=== PATIENT | female | born 1995 | race Caucasian/White ===

== ENCOUNTER 2017-09-05 05:23 | Emergency (ER) | payer BC ==
[~2017-09-05] VITALS: Ht 172.7 cm; Wt 97.1 kg
[2017-09-05] MEDS ORDERED: SODIUM CHLORIDE 0.9% 1,000 ML IV ONE (05:43)
[2017-09-05] MEDS ORDERED: IBUPROFEN 200 MG TABLET ONE (05:50)
[2017-09-05] MEDS ORDERED: ACETAMINOPHEN 325 MG TABLET ONE (05:52)
[2017-09-05 06:00] LABS: HEMOGLOBIN 14.6 g/dL (11.7-16.4); WHITE BLOOD COUNT 5.6 x10^3/uL (3.4-10)
[2017-09-05] MEDS ORDERED: SODIUM CHLORIDE 0.9% 1,000ML IVBOLUS ONE (06:00)
[2017-09-05] MEDS ORDERED: ACETAMINOPHEN 325 MG TABLET PO ONE (06:00)
[2017-09-05] MEDS ORDERED: SODIUM CHLORIDE FLUSH 10ML SYR IVF ONE (06:00)
[2017-09-05 06:17] LABS: ASPARTATE AMINO TRANSFERASE 22 U/L (15-37); BLOOD UREA NITROGEN 8 mg/dL (7-18)
[2017-09-05 06:37] LABS: RAPID INFLUENZA A POSITIVE (Negative); RAPID INFLUENZA B Negative (Negative)
[2017-09-05 08:31] VITALS: BP 111/67
== END 2017-09-05 08:34 | disposition home or self-care (01) ==
LOC: ED 08:28
DX: J09.X2 Influenza due to identified novel influenza A virus with other respiratory manifestations (principal); J02.9 Acute pharyngitis, unspecified; J00 Acute nasopharyngitis [common cold]
CPT/HCPCS: 36415; 71010; 80053; 85025; 87400; 93005; 96360; 99285; J7030; J7512

== ENCOUNTER 2020-04-16 14:40 | Emergency (ER) | payer BC, OTHER ==
[~2020-04-16] VITALS: Ht 172.7 cm; Wt 94.5 kg
--- NOTE | 2020-04-16 15:30 | NUR ---
PT HAS CO INTERMITENT NUMBNESS IN ARMS AND HANDS.PT STATES HER FACE WILL BECOME NUMB AND DROOP AT TIMES. STARTED 4 DAYS AGO. OVERALL FEELING OF FOGGINESS AND DIZZINESS. PT SPEECH CLEAR, NO FACIAL NUMBNESS OR DROOP AT THIS TIME. NEURO INTACT. CO MARTINEZ IN NECK AND BACK OF HEAD. VSS.
[2020-04-16 16:16] VITALS: BP 121/77
--- NOTE | 2020-04-16 16:17 | NUR ---
AMBULATED TO BATHROOM FOR UA. STEADY GAIT
[2020-04-16 16:22] LABS: BASOPHILS # (AUTO) 0.05 x10^3/uL (0-0.1); BASOPHILS % (AUTO) 1 % (0-1); EOSINOPHILS # (AUTO) 0.43 x10^3/uL (0-0.4); EOSINOPHILS % (AUTO) 5 % (1-7); LYMPHOCYTES # (AUTO) 1.74 x10^3/uL (1-3.4); LYMPHOCYTES % (AUTO) 22 % (22-44); MD NO; MEAN CORPUSCULAR HEMOGLOBIN 29.2 pg (27.0-34.8); MEAN CORPUSCULAR HGB CONC 32.7 g/dL (32.4-35.8); MEAN CORPUSCULAR VOLUME 89.5 fL (80-100); MEAN PLATELET VOLUME 10.4 fL (7.4-10.4); MONOCYTES # (AUTO) 0.54 x10^3/uL (0.2-0.8); MONOCYTES % (AUTO) 7 % (2-9); NEUTROPHILS # (AUTO) 5.21 x10^3/uL (1.8-6.8); NEUTROPHILS % (AUTO) 66 % (42-75); PLATELET COUNT 217 x10^3/uL (130-400); RED BLOOD COUNT 5.12 x10^6/uL (3.82-5.3); RED CELL DISTRIBUTION WIDTH 13.6 % (9.6-15.2)
[2020-04-16 16:33] LABS: ALANINE AMINOTRANSFERASE 30 U/L (12-78); ALBUMIN 4.1 g/dL (3.4-5.0); ANION GAP 5 mmol/L (5-15); CALCIUM 8.9 mg/dL (8.5-10.1); CHLORIDE 111 mmol/L (98-107); CREATININE 0.69 mg/dL (0.55-1.02)
[2020-04-16 16:37] LABS: ALKALINE PHOSPHATASE 69 U/L (45-117); BILIRUBIN,TOTAL 0.4 mg/dL (0.2-1.0); TOTAL PROTEIN 7.6 g/dL (6.4-8.2)
[2020-04-16 16:44] LABS: MICROSCOPIC NOT IND
--- NOTE | 2020-04-16 17:16 | NUR ---
PT BACK FROM CT
--- NOTE | 2020-04-16 18:19 | NUR ---
Patient/Caregiver given discharge instructions and they have confirmed that they understand the instructions. Patient ambulatory with steady gait.
== END 2020-04-16 18:21 | disposition home or self-care (01) ==
LOC: ED 15:57
DX: R55 Syncope and collapse (principal); R51 Headache; R42 Dizziness and giddiness; G93.5 Compression of brain
CPT/HCPCS: 36415; 70450; 80053; 81003; 84703; 85025; 85379; 93005; 99285